=== PATIENT | male | born 1975 | race Caucasian/White ===

== ENCOUNTER 2016-11-30 20:30 | Emergency (ER) | payer SELFPAY ==
[2016-11-30 20:47] VITALS: BMI 28.5
[2016-11-30] MEDS ORDERED: DILAUDID INJ IVP PRN (21:22)
[2016-11-30] MEDS ORDERED: PHENERGAN INJ 25 MG IV ONE (21:23)
[2016-11-30] MEDS ORDERED: NS 1000 ML 1,000 ML IV ONE (21:23)
[2016-11-30] MEDS ORDERED: PHENERGAN INJ 25 MG ONE (21:25)
[2016-11-30] MEDS ORDERED: NS 1000 ML 1,000 ML ONE (21:25)
[2016-11-30] MEDS ORDERED: NS 25 ML IV 25 ML IV ONE (21:26)
[2016-11-30] MEDS ORDERED: DILAUDID INJ ONE ×3 (21:26→23:29)
--- NOTE | 2016-11-30 21:31 | DR.GENAD ---
HPI - PCP Primary Care Physician: BLAZE - Complaint/Symptoms Chief Complaint:: PT HAS HX OF CROHNS DX C/O PAIN IN ALL 4 QUADS VOMITING UP GEENISH BILE Self Treatment fo Chief Complaint: MORHINE 2 MG 2004 AND PHENERGAN 2004 - Source History Provided: Patient - Mode of Arrival Mode of Arrival: EMS - Timing Onset of Chief Complaint: 11/30/16 PMH - PMH Past Medical History: Yes Past Medical History Comment: CROHNS Past Surgical History: Yes Surgical History: Bowel Resection - Family History History of Family Medical Conditions: No - Social History Type of Tobacco Use: None Does any household member use tobacco: No Alcohol Use: None Do you use any recreational Drugs:: No Lives With: Family Lives Where: Home - infectious screening In the last 2 months have you had wt loss of >10#?: NO Have you had fever, night sweats or hemotysis?: No Have you traveled outside the country in the last 6 months?: No Isolation: Standard ROS - Review of Systems Eyes: No Symptoms Reported ENTM: No Symptoms Reported Respiratoy: No Symptoms Reported Cardiovascular: No Symptoms Reported Gastrointestinal/Abdominal: Abdominal Pain (due to Crohn's by history) Genitourinary: No Symptoms Reported Neurological: No Symptoms Reported Musculoskeletal: No Symptoms Reported Integumentary: No Symptoms Reported Hematologic/Lymphatic: No Symptoms Reported Endocrine: No Symptoms Reported Psychiatric: No Symptoms Reported All Other Systems: Reviewed and Negative PE - Vital Signs Vitals: Temperature 98.2 F Pulse Rate 136 Respiratory Rate 20 Blood Pressure 135/81 O2 Sat by Pulse Oximetry 100 - General General Appearance: Alert, Anxious - Head Head Exam: Normal Inspection, Atraumatic - Eyes Eye exam: Normal Appearance, PERRL, EOMI - ENT ENT Exam: Normal Exam, Normal Oropharynx External Ear Exam: Normal External Inspection TM/Canal Exam: Bilateral Normal Nose Exam: Normal Nose Exam Mouth Exam: Normal Inspection Throat Exam: Normal Inspection - Neck Neck Exam: Normal Inspection, Full ROM - Chest Chest Inspection: Normal Inspection - Respiratory Respiratory Exam: Normal Lung Sounds Bilat Respiratory Exam: Bilateral Clear to Auscultation - Cardiovascular Cardiovascular Exam: Regular Rate, Normal Rhythm - Abdominal Exam Abdominal Exam: Tenderness (complains of pain) Abdominal Tenderness: Diffuse - Extremities Extremities Exam: Normal Inspection, Full ROM - Back Back Exam: Normal Inspection, Full ROM - Neurologic Neurological Exam: Alert, Oriented X3, CN II-XII Intact - Psychiatric Psychiatric Exam: Normal Affect, Normal Mood - Skin Skin Exam: Warm, Dry, Intact Course - Treatment Treatment: Analgesics, see orders-improved - Reevaluation 1st: Improved ROR - Labs Reviewed Result Diagrams: 11/30/16 22:10 11/30/16 22:10 Laboratory: WBC 13.1 X10^3/uL (3.6-10.0) H 11/30/16 22:10 RBC 4.53 X10^6/uL (4.7-6.0) L 11/30/16 22:10 Hgb 14.4 g/dL (13.5-18.0) 11/30/16 22:10 Hct 41.5 % (42.0-54.0) L 11/30/16 22:10 MCV 91.6 fL (80.0-100.0) 11/30/16 22:10 MCH 31.7 pg (27.0-34.0) 11/30/16 22:10 MCHC 34.6 g/dL (33.0-35.0) 11/30/16 22:10 RDW 13.7 % (11.6-16.5) 11/30/16 22:10 Plt Count 183 X10^3/uL (150.0-450.0) 11/30/16 22:10 MPV 6.8 fL (7.4-11.0) L 11/30/16 22:10 Neut % 74.6 % (42.0-75.0) 11/30/16 22:10 Lymph % 18.0 % (21.0-51.0) L 11/30/16 22:10 [place] % 6.3 % (0.0-13.0) 11/30/16 22:10 Eos % 0.3 % (0.9-2.9) L 11/30/16 22:10 Baso % 0.8 % (0.2-1.0) 11/30/16 22:10 Neut # 9.8 x10^3/uL (2.2-4.8) H 11/30/16 22:10 Lymph # 2.4 X10^3/uL (1.3-2.9) 11/30/16 22:10 [place] # 0.8 x10^3/uL (0.3-0.8) 11/30/16 22:10 Eos # 0.0 x10^3/uL (0.0-0.2) 11/30/16 22:10 Baso # 0.1 X10^3/uL (0.0-0.1) 11/30/16 22:10 Absolute Nucleated RBC 0.0 /100WBC 11/30/16 22:10 Sodium 143 mmol/L (136-145) 11/30/16 22:10 Corrected Sodium 143 mmol/L (136-145) 11/30/16 22:10 Potassium 4.4 mmol/L (3.5-5.1) 11/30/16 22:10 Chloride 106 mmol/L (98-107) 11/30/16 22:10 Carbon Dioxide 24.4 mmol/L (21-32) 11/30/16 22:10 BUN 13 mg/dL (7-18) 11/30/16 22:10 Creatinine 1.13 mg/dL (0.70-1.30) 11/30/16 22:10 Est GFR (MDRD) Af Amer > 60 (>60) 11/30/16 22:10 Est GFR (MDRD) Non-Af > 60 (>60) 11/30/16 22:10 Glucose 116 mg/dL (65-99) H 11/30/16 22:10 Calcium 10.0 mg/dL (8.5-10.1) 11/30/16 22:10 Corrected Calcium TNP 11/30/16 22:10 Total Bilirubin 0.50 mg/dL (0.2-1.0) 11/30/16 22:10 AST 80 Units/L (15-37) H 11/30/16 22:10 ALT 253 Units/L (12-78) H 11/30/16 22:10 Alkaline Phosphatase 106 Units/L (46-116) 11/30/16 22:10 C-Reactive Protein 3.30 mg/L (0-3.0) H 11/30/16 22:10 Total Protein 8.0 g/dL (6.4-8.2) 11/30/16 22:10 Albumin 4.3 g/dL (3.4-5.0) 11/30/16 22:10 Globulin 3.7 g/dL (2.5-4.5) 11/30/16 22:10 Albumin/Globulin Ratio 1.2 Ratio (1.1-2.1) 11/30/16 22:10 - XRAY XRAY Interpreted by: Radiologist (CT: Abd/Pelv: The lung bases are clear. The liver, gallbladder, bile ducts spleen, pancreas, adrenal glands and kidneys are unremarkable. Upper GI tract demonstrates no evidence of mass or obstruction. Urinary bladder is normal. Prostate is unremarkable. The rectus is normal, Scattered diverticular are noted within the distal colon without evidence of acute diverticulitis. The appendix is normal. Abdominal aorta is normal in caliber. No free fluid or adenopathy. Review of bone windows demonstrates no acute osseous abnormality. Impression: No acute inflammatory process identified within the abdomen or pelvis.) - Diagnosis Discharge Problem: Crohns disease Qualifiers: Gastrointestinal tract location: unspecified location Digestive disease complication type: without complication Qualified Code(s): K50.90 - Crohn's disease, unspecified, without complications - Discharge Plan Condition: Stable - Follow ups/Referrals Follow ups/Referrals: Bob Maddox [Primary Care Provider] - 3 days - Instructions
[2016-11-30] MEDS ORDERED: PROTONIX INJ 40 MG VIAL IVP ONE (22:15)
[2016-11-30 22:23] LABS: BASOPHILS # (AUTO) 0.1 X10^3/uL (0.0-0.1); BASOPHILS % (AUTO) 0.8 % (0.2-1.0); EOSINOPHILS % (AUTO) 0.3 % (0.9-2.9); HEMATOCRIT 41.5 % (42.0-54.0); HEMOGLOBIN 14.4 g/dL (13.5-18.0); LYMPHOCYTES # (AUTO) 2.4 X10^3/uL (1.3-2.9); MEAN CORPUSCULAR HEMOGLOBIN 31.7 pg (27.0-34.0); MEAN CORPUSCULAR HGB CONC 34.6 g/dL (33.0-35.0); MEAN CORPUSCULAR VOLUME 91.6 fL (80.0-100.0); MEAN PLATELET VOLUME 6.8 fL (7.4-11.0); MONOCYTES # (AUTO) 0.8 x10^3/uL (0.3-0.8); MONOCYTES % (AUTO) 6.3 % (0.0-13.0); NEUTROPHILS # (AUTO) 9.8 x10^3/uL (2.2-4.8); NEUTROPHILS % (AUTO) 74.6 % (42.0-75.0); RED BLOOD COUNT 4.53 X10^6/uL (4.7-6.0); RED CELL DISTRIBUTION WIDTH 13.7 % (11.6-16.5); WHITE BLOOD COUNT 13.1 X10^3/uL (3.6-10.0)
[2016-11-30 22:26] LABS: PLATELET COUNT 183 X10^3/uL (150.0-450.0)
[2016-11-30] MEDS ORDERED: PROTONIX INJ 40 MG VIAL ONE (22:26)
[2016-11-30 22:28] LABS: ALANINE AMINOTRANSFERASE 253 Units/L (12-78); ALBUMIN 4.3 g/dL (3.4-5.0); ALKALINE PHOSPHATASE 106 Units/L (46-116); ASPARTATE AMINO TRANSFERASE 80 Units/L (15-37); BLOOD UREA NITROGEN 13 mg/dL (7-18); CARBON DIOXIDE 24.4 mmol/L (21-32); CHLORIDE 106 mmol/L (98-107); COR NA(FOR HYPERGLY) 143 mmol/L (136-145); CREATININE 1.13 mg/dL (0.70-1.30); SODIUM 143 mmol/L (136-145); eGFR BLACK RACES > 60 (>60); eGFR NON BLACK RACES > 60 (>60)
[2016-11-30] MEDS ORDERED: MOTRIN TAB 800 MG PO ONE (22:37)
[2016-11-30] MEDS ORDERED: SOLU-Medrol 125 MG VIAL IVP ONE (22:40)
[2016-11-30] MEDS ORDERED: DILAUDID INJ IVP ONE ×2 (22:42→23:28)
[2016-11-30] MEDS ORDERED: SOLU-Medrol 125 MG VIAL ONE (22:45)
[2016-11-30] MEDS ORDERED: NS 100 ML IV 100 ML IV ONE (23:25)
--- NOTE | 2016-12-01 00:05 | CT ---
CT abdomen and pelvis with contrast Indication: Abdominal pain with previous bowel resection Comparison: None available Technique: Multiple axial images of the abdomen and pelvis were obtained from the lung bases to the pubic symphy sis after the administration of IV contrast. Findings: The lung bases are clear. The liver, gallbladder, bile ducts, spleen, pancreas, adrenal glands and ki dneys are unremarkable. Upper GI tract demonstrates no evidence of mass or obstruction. Urinary bladd er is normal. Prostate is unremarkable. The rectum is normal. Scattered diverticular are noted within the distal colon without evidence of acute diverticulitis. The appendix is normal. Abdominal aorta i s normal in caliber. No free fluid or adenopathy. Review of bone windows demonstrates no acute osseou s abnormality. Impression: No acute inflammatory process identified within the abdomen or pelvis. Reported By:
[2016-12-01] MEDS ORDERED: PHENERGAN INJ 25 MG IM ONE (01:29)
[2016-12-01] MEDS ORDERED: DEMEROL INJ IM ONE (01:31)
[2016-12-01] MEDS ORDERED: PHENERGAN INJ 25 MG ONE ×2 (01:32→03:15)
[2016-12-01] MEDS ORDERED: DEMEROL INJ ONE (01:32)
[2016-12-01] MEDS ORDERED: PHENERGAN INJ 25 MG IV ONE (03:14)
[2016-12-01] MEDS ORDERED: NS 25 ML IV 25 ML IV ONE (03:15)
[2016-12-01 04:28] VITALS: BP 162/72
== END 2016-12-01 07:42 | disposition home or self-care (01) ==
LOC: ER 20:44
DX: K50.90 Crohn's disease, unspecified, without complications (principal); R10.84 Generalized abdominal pain
CPT/HCPCS: 36415; 74177; 80053; 85025; 86140; 96365; 96372; 96374; 96375; 99283; A4222; C9113; J1170; J2175; J2550; J2930